=== PATIENT | female | born 1955 | race African-American/Black ===

== ENCOUNTER → 2016-11-25 | Outpatient (CLI) | payer OTHER | LOC: RAD 12:58 | DX: Z12.31 Encounter for screening mammogram for malignant neoplasm of breast (principal) ==

== ENCOUNTER → 2019-03-24 | Outpatient (CLI) | payer OTHER | LOC: RAD 13:11 | DX: Z12.31 Encounter for screening mammogram for malignant neoplasm of breast (principal) ==